=== PATIENT | female | born 1940 | race Caucasian/White ===

== ENCOUNTER 2020-03-20 09:57 | Outpatient (CLI) | payer MEDICARE, SELFPAY ==
[2020-03-20 11:00] LABS: Hemoglobin A1C 6.4 % (<5.7)
[2020-03-20 11:05] LABS: Blood Urea Nitrogen 20 mg/dL (7-17); Calcium 9.2 mg/dL (8.4-10.2); Carbon Dioxide 30 mmol/L (22-30); Chloride 99 mmol/L (98-107); Cholesterol 162 mg/dL (0-200); Estimated Glomerular Filt Rate > 60; Glucose 100 mg/dL (65-105); HDL Direct 70 mg/dL; Potassium 4.6 mmol/L (3.4-5.0); Sodium 135 mmol/L (137-145); Triglycerides 158 mg/dL (<150)
[2020-03-20 11:15] LABS: LDL Cholesterol Direct 57 mg/dL
[2020-03-20 11:52] LABS: Creatinine Urine 69.9 mg/dL
[2020-03-20 11:56] LABS: Microalbumin Urine Random 18.2 mg/L (0-16.7)
== END 2020-03-20 09:58 | disposition home or self-care (01) ==
LOC: ANHLAB 09:59
PROVIDERS: PCP Internal Medicine; Visit Provider Internal Medicine
DX: E78.5 Hyperlipidemia, unspecified (principal); R73.01 Impaired fasting glucose; I10 Essential (primary) hypertension
CPT/HCPCS: 36415; 80048; 80061; 82043; 83036; 84443

== ENCOUNTER 2020-04-06 09:11 | Outpatient (CLI) | payer MEDICARE, SELFPAY ==
--- NOTE | ~2020-04-06 | DEXA_ITS ---
Bone Density Report Name: María Elena Costa Age: 79 Sex: Female Ethnicity: White Date of : 1940 Indication: postmenopausal; height loss; Referring Provider: ARLENE SANCHEZ Study: Bone densitometry was performed. Exam Date: April 06, 2020 Accession number: [id number] Bone Density: Region BMD T-score Z-score Classification AP Spine (L1, L2, L3) 0.838 -1.6 1.0 Osteopenia Femoral Neck (Left) 0.429 -3.8 -1.5 Osteoporosis Total Hip (Left) 0.676 -2.2 -0.1 Osteopenia Total Hip Bilateral Avg 0.688 -2.1 0.0 Osteopenia Femoral Neck (Right) 0.441 -3.7 -1.4 Osteoporosis Total Hip (Right) 0.699 -2.0 0.1 Osteopenia World Health Organization criteria for BMD impression classify patients as: Normal (T-score at or above -1.0), Osteopenia (T-score between -1.0 and -2.5), or Osteoporosis (T-score at or below -2.5). 10-year Fracture Risk: FRAX not reported because: Some T-score for Spine Total or Hip Total or Femoral Neck at or below -2.5 Clinical Information Provided by Patient: Has used the following medications: Vitamin D, Calcium Patient maximum height was 62 Menopause Age: 50 Onset of menses at age 14 Number of children 4 Impression: The patient has osteoporosis, based on the Left Femoral Neck T-score. Discussion: INCREASED RISK OF FRACTURE. BONE DENSITY IS UNDESIRABLY LOW AT ONE OR MORE SKELETAL SITES, CONSISTENT WITH POSTMENOPAUSAL OSTEOPOROSIS. This patient's lowest T-score meets the World Health Organization's (WHO) criteria for osteoporosis at one or more sites (T-score -2.5 or below). In untreated patients, the risk of osteoporotic fracture increases approximately two-fold for each 1.0 SD decrease in T-score. Low bone density is not the only risk factor for fracture; also consider factors such as patient's age, frailty or poor health, risk of falling, risk of injury, previous osteoporotic fracture, family history of osteoporosis, cigarette smoking, low body weight, etc. Not everyone with low bone mineral density has osteoporosis; osteomalacia and other metabolic bone disorders should also be considered. Patients who have osteoporosis should be evaluated for specific diseases and conditions (secondary causes) that may cause or contribute to bone loss. The [place] Association of Clinical Endocrinologists (AACE) and National Osteoporosis Foundation (NOF) recommend pharmacologic intervention for all postmenopausal women whose T-score is in this range. The patient should follow a healthful lifestyle (good nutrition with adequate calcium and vitamin D, and appropriate weight-bearing exercise). Follow-Up: Consider a repeat BMD and Vertebral Fracture Assessment (VFA) exam in 2 years or sooner if medically necessary, to reassess this patient's status. Reported by: VAISHALI on 04/06/2020 9:42:00 AM.
== END 2020-04-06 09:12 | disposition home or self-care (01) ==
LOC: ANHIMG 09:12
PROVIDERS: PCP Internal Medicine; Visit Provider Internal Medicine
DX: Z78.0 Asymptomatic menopausal state (principal); M81.0 Age-related osteoporosis without current pathological fracture; M85.88 Other specified disorders of bone density and structure, other site; M85.852 Other specified disorders of bone density and structure, left thigh; M85.851 Other specified disorders of bone density and structure, right thigh
CPT/HCPCS: 77080

== ENCOUNTER → 2021-08-01 08:04 | Outpatient (CLI) | payer MEDICARE, SELFPAY ==
[2021-08-01 18:47] LABS: SARS-CoV-2 RNA PCR Negative
== END ==
PROVIDERS: PCP Internal Medicine; Visit Provider Internal Medicine
DX: R68.89 Other general symptoms and signs (principal); Z20.822 Contact with and (suspected) exposure to COVID-19
CPT/HCPCS: C9803; U0003; U0005

== ENCOUNTER 2021-08-01 09:31 | Outpatient (CLI) | payer MEDICARE, SELFPAY ==
--- NOTE | ~2021-08-01 | XR_ITS ---
EXAMINATION: XR chest 2V DATE: 08/01/2021 09:59 INDICATION: Shortness of breath. Cough. TECHNIQUE: Frontal and lateral views of the chest were obtained. COMPARISON: Chest 2 views 12/10/2018 FINDINGS: The chest demonstrates clear lungs without pneumonia, pleural effusion, or pneumothorax. Th e heart size is normal. There is a moderate-sized hiatal hernia. There is mild chronic anterior wedgi ng of multiple vertebra. IMPRESSION: 1. Moderate-sized hiatal hernia. Reviewed, dictated and finalized at location A. ER MACHINE OPERATOR
== END 2021-08-01 09:32 | disposition home or self-care (01) ==
LOC: ANHIMG 09:41
PROVIDERS: PCP Internal Medicine; Visit Provider Internal Medicine
DX: R06.02 Shortness of breath (principal); K44.9 Diaphragmatic hernia without obstruction or gangrene
CPT/HCPCS: 71046; C9803; U0003; U0005

== ENCOUNTER 2022-04-08 09:35 | Outpatient (CLI) | payer MEDICARE, SELFPAY ==
--- NOTE | ~2022-04-08 | DEXA_ITS ---
Bone Density Report Name: MARGI SHEPARD Age: 81 Sex: Female Ethnicity: White Date of : 1940 Indication: osteopenia; height loss; postmenopausal Referring Provider: ARLENE SANCHEZ Study: Bone densitometry was performed. Exam Date: April 08, 2022 Accession number: [id number] Bone Density: Region BMD T-score Z-score Classification AP Spine(L1-L4) 0.980 -0.6 2.1 Normal Femoral Neck (Left) 0.490 -3.2 -0.9 Osteoporosis Total Hip (Left) 0.716 -1.9 0.3 Osteopenia Femoral Neck (Right) 0.483 -3.3 -0.9 Osteoporosis Total Hip (Right) 0.735 -1.7 0.5 Osteopenia Total Hip Mean 0.725 -1.8 0.4 Osteopenia World Health Organization criteria for BMD impression classify patients as: Normal (T-score at or above -1.0), Osteopenia (T-score between -1.0 and -2.5), or Osteoporosis (T-score at or below -2.5). 10-year Fracture Risk: FRAX not reported because: Some T-score for Spine Total or Hip Total or Femoral Neck at or below -2.5 Previous Exams: Region Exam Age BMD T-score BMD Change BMD Change Date g/cm2 vs Baseline vs Previous Total Hip(Left) 04/08/2022 81 0.716 -1.9 0.040 (5.9%)* 0.040 (5.9%)* 04/06/2020 79 0.676 -2.2 Total Hip(Right) 04/08/2022 81 0.735 -1.7 0.036 (5.1%)* 0.036 (5.1%)* 04/06/2020 79 0.699 -2.0 *Denotes significance at 95% confidence level, LSC for Total Hip = 0.027 g/cm2 Clinical Information Provided by Patient: Has used the following medications: Vitamin D, Calcium Patient maximum height was 63 Menopause Age: 50 Does not regularly consume dairy products Drinks caffeinated beverages Onset of menses at age 13 Number of children 4 Impression: The patient has osteoporosis, based on the Right Femoral Neck T-score. No significant bone loss was observed. Discussion: INCREASED RISK OF FRACTURE. BONE DENSITY IS UNDESIRABLY LOW AT ONE OR MORE SKELETAL SITES, CONSISTENT WITH POSTMENOPAUSAL OSTEOPOROSIS. This patient's lowest T-score meets the World Health Organization's (WHO) criteria for osteoporosis at one or more sites (T-score -2.5 or below). In untreated patients, the risk of osteoporotic fracture increases approximately two-fold for each 1.0 SD decrease in T-score. Low bone density is not the only risk factor for fracture; also consider factors such as patient's age, frailty or poor health, risk of falling, risk of injury, previous osteoporotic fracture, family history of osteoporosis, cigarette smoking, low body weight, etc. Not everyone with low bon
== END 2022-04-08 09:36 | disposition home or self-care (01) ==
LOC: ANHIMG 09:36
PROVIDERS: PCP Internal Medicine; Visit Provider Internal Medicine
DX: M81.0 Age-related osteoporosis without current pathological fracture (principal); M85.852 Other specified disorders of bone density and structure, left thigh; M85.851 Other specified disorders of bone density and structure, right thigh
CPT/HCPCS: 77080

== ENCOUNTER 2022-11-02 10:47 | Outpatient (CLI) | payer MEDICARE, SELFPAY ==
--- NOTE | ~2022-11-02 | XR_ITS ---
XR hip BI wo pelvis 11/02/2022 11:18 Indication: Bilateral hip pain. Procedure: 2 views each hip Comparison: No prior studies for comparison. Findings: There is moderate symmetric bilateral osteoarthritis of the hips. There are femoral vascula r calcifications. There are mild degenerative changes of the pubic symphysis. No acute fracture or tr aumatic malalignment. 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 Reviewed, dictated and finalized at location A. OPSYCHOLOGY DIVISION CHIEF Impression: 1: Moderate bilateral symmetric osteoarthritis of the hips.
--- NOTE | ~2022-11-02 | XR_ITS ---
XR lumbar spine 2-3V 11/02/2022 11:18 Indication: Low back pain. Procedure: 3 views lumbar spine Comparison: No prior studies for comparison. Findings: There is advanced disc narrowing at all lumbar levels. There is grade 1 degenerative spondy lolisthesis at L4-5. There is facet hypertrophy at L4-5 and L5-S1. There is atherosclerosis of the ao rta. Mild dextrocurvature of the upper thoracic spine. No acute fracture or traumatic malalignment. Impression: 1: Severe lumbar spondylosis. Reviewed, dictated and finalized at location A. CTION COORDINATION POWER ENGINEER Impression: 1: Severe lumbar spondylosis.
== END 2022-11-02 10:48 | disposition home or self-care (01) ==
PROVIDERS: PCP Internal Medicine; Visit Provider Internal Medicine
DX: M16.0 Bilateral primary osteoarthritis of hip (principal); M47.896 Other spondylosis, lumbar region
CPT/HCPCS: 72100; 73521

== ENCOUNTER 2022-12-30 10:14 | Outpatient (CLI) | payer MEDICARE, SELFPAY ==
--- NOTE | ~2022-12-30 | XR_ITS ---
Clinical Indication: Shortness of breath PA and lateral views of the chest: Comparison: 08/01/2021 Findings: The lungs are clear, without evidence of focal consolidation or pleural effusion. Probable COPD. Cardiomediastinal silhouette is within normal limits. Bones and soft tissues are unremarkable. Impression: Probable COPD. Clear lungs. Reviewed, dictated and finalized at location . Impression: Probable COPD. Clear lungs.
== END 2022-12-30 10:15 | disposition home or self-care (01) ==
PROVIDERS: PCP Internal Medicine; Visit Provider Nurse Practitioner Family
DX: R06.02 Shortness of breath (principal)
CPT/HCPCS: 71046

== ENCOUNTER 2023-01-20 13:31 | Outpatient (CLI) | payer MEDICARE, SELFPAY ==
--- NOTE | ~2023-01-20 | US_ITS ---
EXAMINATION: US venous doppler [facility] DATE: 01/20/2023 14:36 INDICATION: Left lower limb pain TECHNIQUE: Grayscale ultrasound images without and with compression and Doppler ultrasound images of the left lower extremity veins were obtained. COMPARISON: None. FINDINGS: The visualized portions of left common femoral vein, profunda (deep) femoral vein, femoral vein, popl iteal vein, peroneal veins, posterior tibial veins, gastrocnemius vein and greater saphenous vein out flow are patent. IMPRESSION: 1. No deep venous thrombosis in the left lower limb. Reviewed, dictated and finalized at location A.
== END 2023-01-20 13:32 | disposition home or self-care (01) ==
PROVIDERS: PCP Internal Medicine; Visit Provider Family Medicine
DX: M79.606 Pain in leg, unspecified (principal); M79.662 Pain in left lower leg
CPT/HCPCS: 93971

== ENCOUNTER 2023-09-02 09:12 | Outpatient (CLI) | payer MEDICARE, SELFPAY ==
--- NOTE | ~2023-09-02 | CT_ITS ---
CT Scan of the Chest without Contrast: Clinical Indication: Lung cancer screening, personal history of nicotine dependence Technique: Contiguous sections were acquired throughout the chest without intravenous contrast. Dose reduction technique was used on this scan by utilizing automated exposure control and iterative recon struction technique. The dose-length product (DLP) was 110.34 mGy-cm. Findings: There is no evidence of any significant mediastinal, hilar or axillary lymphadenopathy. There are ath erosclerotic calcifications of the aorta and coronary arteries. Moderate hiatal hernia present. There is no evidence of pleural or pericardial effusion. There are several tiny pulmonary nodules at the right lower lobe. Calcified right upper lobe granulom a present. Images through the upper abdomen reveal no abnormalities. Impression: Lung RADS 2: Benign appearance. 12 month follow-up screening CT advised. Reviewed, dictated and finalized at [facility]. ULAR TECHNOLOGIST Impression: Lung RADS 2: Benign appearance. 12 month follow-up screening CT advised.
== END 2023-09-02 09:13 | disposition home or self-care (01) ==
LOC: ANHIMG 09:14
PROVIDERS: PCP Family Medicine; Visit Provider Family Medicine
DX: Z12.2 Encounter for screening for malignant neoplasm of respiratory organs (principal); Z87.891 Personal history of nicotine dependence
CPT/HCPCS: 71271

== ENCOUNTER 2024-06-02 11:19 | Outpatient (CLI) | payer MEDICARE, SELFPAY ==
--- NOTE | ~2024-06-02 | XR_ITS ---
EXAMINATION: XR hip LT min 2V DATE: 06/02/2024 11:45 INDICATION: Pain in unspecified hip. TECHNIQUE: 2 views of left hip were obtained. COMPARISON: Left hip radiographs 11/02/2022 FINDINGS: Alignment is normal. No fracture. There is mild left hip osteoarthritis. IMPRESSION: 1. Mild left hip osteoarthritis. Reviewed, dictated and finalized at location A.
--- NOTE | ~2024-06-02 | XR_ITS ---
EXAMINATION: XR lumbar spine 2-3V DATE: 06/02/2024 11:45 INDICATION: Other spondylosis with radiculopathy. TECHNIQUE: 3 views of lumbar spine were obtained. COMPARISON: Lumbar spine radiograph 11/02/2022 FINDINGS: There is 14 degrees levoscoliosis of lumbar spine. There is 3 mm retrolisthesis of L1 on L2 and L2 on L3 and 7 mm anterolisthesis of L4 on L5. Vertebral body heights are normal. There is sever yolis decreased disc height at T12-L1 and L1-L2, mildly decreased disc height at L2-L3 and L3-L4, and s everely decreased disc height at L4-L5 and L5-S1. There is multilevel severe facet joint osteoarthrit is. IMPRESSION: 1. Severe lumbar spondylosis, stable from 11/02/2022. 2. Lumbar levoscoliosis. Reviewed, dictated and finalized at location A.
== END 2024-06-02 11:20 | disposition home or self-care (01) ==
PROVIDERS: PCP Family Medicine; Visit Provider Nurse Practitioner Family
DX: M25.552 Pain in left hip (principal); M47.27 Other spondylosis with radiculopathy, lumbosacral region
CPT/HCPCS: 72100; 73502

== ENCOUNTER 2024-06-19 08:25 | Outpatient (CLI) | payer MEDICARE, SELFPAY ==
--- NOTE | ~2024-06-19 | MR_ITS ---
MRI of the lumbar spine Clinical History: Spondylosis Technique: Axial T2-weighted images, and sagittal T1-weighted, T2-weighted, and T2 fat-sat images wer e acquired. Findings: No fracture seen. There is 3 mm anterolisthesis of L4 over L5. There is 3 mm retrolisthesis of L5 over S1. No suspicious bone marrow signal abnormality seen. There mild Modic changes about the L4-L5 and L5-S1 disc space. At L1-L2, there is moderate degenerative disc narrowing. There is minimal disc bulge with mild facet arthropathy. No angle central canal stenosis. There is mild left neural foraminal narrowing. Right ne ural foramen preserved. At L2-L3, there is moderate degenerative disc narrowing. There is mild diffuse disc bulge with modera te facet arthropathy. No angle central canal stenosis. There is minimal bilateral neural foraminal na rrowing. L3-L4, there is disc bulge and severe facet arthropathy, with mild central canal stenosis. There is m oderate right neural foraminal narrowing, and minimal left neural foraminal narrowing. At L4-L5, there is advanced degenerative disc narrowing. Diffuse disc bulge and severe facet arthropa thy result in severe spinal canal stenosis/thecal sac compression, and severe bilateral neural forami nal caliber otherwise. At L5-S1, there is severe degenerative disc narrowing. Diffuse disc bulge and advanced facet arthropa thy are present. No angle central canal stenosis. There is severe bilateral neural foraminal compromi se, left worse than right. Paravertebral soft tissues are unremarkable. Impression: Severe degenerative spondylosis, worst at L4-L5. Please see details above. 3 mm anterolisthesis of L4 over L5. 3 mm retrolisthesis of L5 over S1. Reviewed, dictated and finalized at [facility]. Impression: Severe degenerative spondylosis, worst at L4-L5. Please see details above. 3 mm anterolisthesis of L4 over L5. 3 mm retrolisthesis of L5 over S1.
== END 2024-06-19 08:26 | disposition home or self-care (01) ==
LOC: ANHIMG 08:27
PROVIDERS: PCP Family Medicine; Visit Provider Nurse Practitioner Family
DX: M47.816 Spondylosis without myelopathy or radiculopathy, lumbar region (principal); M43.16 Spondylolisthesis, lumbar region; M43.17 Spondylolisthesis, lumbosacral region; M54.10 Radiculopathy, site unspecified; R20.0 Anesthesia of skin
CPT/HCPCS: 72148

== ENCOUNTER 2025-02-02 11:29 | Outpatient (CLI) | payer MEDICARE, SELFPAY ==
--- NOTE | ~2025-02-02 | DEXA_ITS ---
Bone Density Report Name: MARGI SHEPARD Age: 84 Sex: Female Ethnicity: White Date of : 1940 Indication: osteopenia; height loss; Referring Provider: PING MEJIAS Study: Bone densitometry was performed. Exam Date: February 02, 2025 Accession number: [id number] Bone Density: Region BMD T-score Z-score Classification AP Spine(L1-L4) 0.915 -1.2 1.7 Osteopenia Femoral Neck (Left) 0.438 -3.7 -1.2 Osteoporosis Total Hip (Left) 0.713 -1.9 0.4 Osteopenia Femoral Neck (Right) 0.470 -3.4 -0.9 Osteoporosis Total Hip (Right) 0.704 -1.9 0.4 Osteopenia Total Hip Mean 0.709 -1.9 0.4 Osteopenia World Health Organization criteria for BMD impression classify patients as: Normal (T-score at or above -1.0), Osteopenia (T-score between -1.0 and -2.5), or Osteoporosis (T-score at or below -2.5). 10-year Fracture Risk: FRAX not reported because: Some T-score for Spine Total or Hip Total or Femoral Neck at or below -2.5 Previous Exams: Region Exam Age BMD T-score BMD Change BMD Change Date g/cm2 vs Baseline vs Previous AP Spine (L1-L4) 02/02/2025 84 0.915 -1.2 -0.065 (-6.7%) -0.065 (-6.7%) 04/08/2022 81 0.980 -0.6 Total Hip(Left) 02/02/2025 84 0.713 -1.9 0.037 (5.5%)* -0.002 (-0.3%) 04/08/2022 81 0.716 -1.9 0.040 (5.9%)* 0.040 (5.9%)* 04/06/2020 79 0.676 -2.2 Total Hip(Right) 02/02/2025 84 0.704 -1.9 0.005 (0.7%) -0.031 (-4.2%) 04/08/2022 81 0.735 -1.7 0.036 (5.1%)* 0.036 (5.1%)* 04/06/2020 79 0.699 -2.0 *Denotes significance at 95% confidence level, LSC for AP Spine = 0.022 g/cm2, LSC for Total Hip = 0.027 g/cm2 Clinical Information Provided by Patient: Has used the following medications: Vitamin D Patient maximum height was 62 Menopause Age: 50 No regular weight bearing exercise Onset of menses at age 12 Number of children 4 Impression: The patient has osteoporosis, based on the Left Femoral Neck T-score. The BMD for the AP Spine (L1-L4) decreased, changing by -6.7% since the last DXA exam. The BMD for the Total Hip(Right) decreased, changing by -4.2% since the last DXA exam. Discussion: INCREASED RISK OF FRACTURE. BONE DENSITY IS UNDESIRABLY LOW AT ONE OR MORE SKELETAL SITES, CONSISTENT WITH POSTMENOPAUSAL OSTEOPOROSIS. This patient's lowest T-score meets the World Health Organization's (WHO) criteria for osteoporosis at one or more sites (T-score -2.5 or below). In untreated patients, the risk of osteoporotic fracture increases approximately two-fold for each 1.0 SD decrease in T-score. Low bone density is not the only risk factor for fracture; also consider factors such as patient's age, frailty or poor health, risk of falling, risk of injury, previous osteoporotic fracture, family history of osteoporosis, cigarette smoking, low body weight, etc. Not everyone with low bone mineral density has osteoporosis; osteomalacia and other metabolic bone disorders should also be considered. Patients who have osteoporosis should be evaluated for specific diseases and conditions (secondary causes) that may cause or contribute to bone loss. The [place] [employer] Clinical Endocrinologists (AACE) and National Osteoporosis Foundation (NOF) recommend pharmacologic intervention for all postmenopausal women whose T-score is in this range. The patient should follow a healthful lifestyle (good nutrition with adequate calcium and vitamin D, and appropriate weight-bearing exercise). Follow-Up: Consider a repeat BMD and Vertebral Fracture Assessment (VFA) exam in 2 years or sooner if medically necessary, to reassess this patient's status. Reported by: VAISHALI on 02/02/2025 12:12:00 PM. Reviewed, dictated and finalized at location A.
== END 2025-02-02 11:30 | disposition home or self-care (01) ==
LOC: ANHIMG 11:30
PROVIDERS: PCP Family Medicine; Visit Provider Family Medicine
DX: M81.0 Age-related osteoporosis without current pathological fracture (principal); M85.88 Other specified disorders of bone density and structure, other site; M85.852 Other specified disorders of bone density and structure, left thigh; M85.851 Other specified disorders of bone density and structure, right thigh
CPT/HCPCS: 77080

== ENCOUNTER 2025-03-17 10:19 | Outpatient (CLI) | payer MEDICARE, SELFPAY ==
--- NOTE | ~2025-03-17 | XR_ITS ---
HISTORY: PT C/O ANTERIOR LEFT LOWER RIB PAIN W/ SWELLING x6 DAYS COMPARISON: None TECHNIQUE: 3 views of the left ribs were performed FINDINGS: No acute displaced fracture is appreciated. The adjacent left lung is unremarkable. Bone mineralization is age-appropriate. IMPRESSION: No acute fracture is appreciated. If clinical suspicion persists, cross-sectional imaging (noncontrast enhanced CT examination of the c hest) is suggested for further evaluation. Reviewed, dictated and finalized at location A. IMPRESSION: No acute fracture is appreciated. If clinical suspicion persists, cross-sectional imaging (noncontrast enhanced C T examination of the chest) is suggested for further evaluation.
--- OUTSIDE RECORDS SUMMARY | 2025-03-17 10:27 | XMS_ITS | Clinical Summary ---
Author Organization [facility] Address [address] [place] [id number] Care Team Providers Care Layout Technician Name Role Phone Unavailable Primary Care Provider Unavailabl e Social History Tobacco Use Types Packs/Day Years Used Date Smoking Tobacco: Never Assessed Comments Unknown Sex and Gender Information Value Date Recorded Sex Assigned at Not on file Legal Sex Female 7:57 PM CDT Gender Identity Not on file Sexual Orientation Not on file Plan of Treatment Health Maintenance Due Date Last Done Comments DTaP, Tdap and Td Vaccines ( 1 - Tdap) 1959 Pneumococcal Vaccine: 50+ Ye ars (1 of 1 - PCV) 1990 Zoster Vaccines (1 of 2) 1990 Dexa Scan (General) 2005 RSV Immunization or 60+ Years (1 - 1-dose 75+ series) 2015 COVID-19 Vaccine (2023-2 5 season) 2024 Meningococcal B Vaccine Aged Out No l onger eligible based on patient's age to complete this topic Meningococcal Vaccine Aged Out No mike mazin eligible based on patient's age to complete this topic RSV Immunizations Under 20 Months Aged Out No longer eligible based on patient's age to complete this topic
== END 2025-03-17 10:20 | disposition home or self-care (01) ==
PROVIDERS: PCP Family Medicine; Visit Provider Nurse Practitioner Family
DX: R07.81 Pleurodynia (principal)
CPT/HCPCS: 71100